=== PATIENT | female | born 1970 | race Caucasian/White ===

== ENCOUNTER 2020-06-10 16:25 | Emergency (ER) | payer OTHER | END 2020-06-10 17:33 | disposition home or self-care (01) | LOC: JVIRT 16:25 | DX: Z03.818 Encounter for observation for suspected exposure to other biological agents ruled out (principal) | CPT/HCPCS: C9803; Q3014-GT; U0003 ==

== ENCOUNTER 2020-09-15 19:32 | Emergency (ER) | payer OTHER | END 2020-09-15 20:47 | disposition home or self-care (01) | LOC: JVIRT 19:32 | DX: Z11.52 Encounter for screening for COVID-19 (principal) | CPT/HCPCS: C9803; G2251-GT; U0003 ==